=== PATIENT | female | born 2005 | race Caucasian/White ===

== ENCOUNTER 2025-05-23 13:01 | Emergency (ER) | payer MEDICAID ==
[~2025-05-23] VITALS: Ht 154.9 cm; Wt 40.5 kg
[2025-05-23 13:04] VITALS: TEMP 98.6
--- NOTE | 2025-05-23 13:17 | Physician Documentation ---
History of Present Illness ~ Chief Complaint: Abdominal Pain Stated Complaint: ABDOMINAL PAIN Time Seen by MD: 15:23 OK to notify your PCP?: Yes Source: patient Mode of Arrival: POV Exam Limitations: no limitations HPI 20-year-old female presents with lower abdominal pain which is radiating to her right flank for the past 2 days. She reports also having some vaginal bleeding over the past 2 days in his passing some clots. She did have a baby in August of this year. She is unsure when her last menstrual cycle was. Medication Reconciliation Allergies: Coded Allergies: No Known Allergies (Unverified , 05/23/25) Past Medical History Past Medical History: No Pertinent History Past Surgical History: no surgical history Lives with: Mother, Family Lives In: Home Occupation: child Review of Systems All Other Systems at this time: Reviewed and Negative Physical Exam Vital Signs: RN Vital Signs have been reviewed: Yes, Temperature: 98.6, Source: Oral, Heart Rate: 110, Respiratory Rate: 16, Pulse Oximetry: 98, Weight: 40.500 Oxygen Flow Rate: 0 Pulse Oximetry Reflects: adequate oxygenation Physical Exam General: Alert, no apparent distress. HEENT: PERRL, EOMI, no injection, moist mucous membranes. Neck: Full range of motion. Respiratory: Lungs clear, no respiratory distress. Chest: No accessory muscle use. Cardiovascular: Regular rate and rhythm, no murmurs. Gastrointestinal: Soft, nondistended. Bowels sounds present. Right lower quadrant tenderness to palpation. Rebound tenderness, no guarding. Extremities: Normal range of motion, no deformity. Neurologic: Oriented x4. Psychiatric: Normal mood and affect. Skin: Normal color, warm and dry. No edema, no ecchymosis. Pelvic exam declined by patient. Progress Results/Orders Reviewed/noted all lab results: Yes Results/Orders Orders - MICA MARTINEZ Ultrasound Pelvis W/Orwo Dplx (05/23/25 ) Saline Lock (05/23/25 ) Ct Abdomen Pelvis (05/23/25 16:05) Completed Orders - MICA MARTINEZ Ultrasound Pelvis W/Orwo Dplx (05/23/25 ) Procalcitonin (05/23/25 15:30) Normal Saline 1000ml (0.9% Sodium Chlori (05/23/25 15:30) Ct Abdomen Pelvis (05/23/25 16:05) Iohexol 300mg/Ml 100ml Inj. (Omnipaque-3 (05/23/25 17:04) Medications Received in ER Medications (Trade) Dose Ordered Sig/Hever Route PRN Reason Start Time Stop Time Status Last Admin Dose Admin (0.9% sodium chloride (NS) 1000ml IV soln) 1,000 ml ONCE ONCE IVB 05/23/25 15:30 05/23/25 15:33 DC 05/23/25 16:05 1,000 ML Vital Signs 05/23/25 05/23/25 05/23/25 05/23/25 13:04 15:17 16:16 17:49 Temp 98.6 Pulse 110 65 91 Resp 16 15 15 16 B/P (MAP) 94/57 123/56 (78) 100/64 (76) Pulse Ox 98 100 100 O2 Flow Rate 0 05/23/25 17:49 Pulse 90 Resp 16 B/P (MAP) 96/68 (77) Pulse Ox 99 Laboratory Tests Test 05/23/25 13:20 05/23/25 15:26 White Blood Count 11.9 H Red Blood Count 3.95 L Hemoglobin 9.7 L Hematocrit 30.4 L Mean Corpuscular Volume 77.0 L Mean Corpuscular Hemoglobin 24.5 L Mean Corpuscular Hemoglobin Concent 31.9 L Red Cell Distribution Width 15.1 H Platelet Count 453 H Mean Platelet Volume 7.4 Neutrophils (%) (Auto) 74.7 Lymphocytes (%) (Auto) 17.8 L Monocytes (%) (Auto) 6.6 Eosinophils (%) (Auto) 0.4 Basophils (%) (Auto) 0.5 Neutrophils # (Auto) 8.9 H Lymphocytes # (Auto) 2.1 Monocytes # (Auto) 0.8 Eosinophils # (Auto) 0.0 Basophils # (Auto) 0.1 CBC Comment Sodium Level 138 Potassium Level 3.8 Chloride Level 104 Carbon Dioxide Level 27.9 Anion Gap 6 L Blood Urea Nitrogen 12 Creatinine 0.67 Estimated GFR/1.73 m2 > 90 BUN/Creatinine Ratio 17.9 Glucose Level 90 Calcium Level 8.5 Total Bilirubin 0.2 Aspartate Amino Transf (AST/SGOT) 15 Alanine Aminotransferase (ALT/SGPT) 17 Alkaline Phosphatase 82 Total Protein 7.9 Albumin 3.7 Globulin 4.2 Albumin/Globulin Ratio 0.9 L Lipase 20 Procalcitonin < 0.05 Chemistry Comments Urine Specimen Description Urinal Urine Color Yellow Urine Clarity Clear Urine pH 7.0 Urine Specific [place] 1.020 Urine Protein Negative Urine Glucose (UA) Negative Urine Ketones Trace H Urine Occult Blood Negative Urine Nitrite Negative Urine Bilirubin Negative Urine Urobilinogen 0.2 Urine Leukocyte Esterase Negative Urine Culture Indicated Not ind Volume Urine Centrifuged 10 ml Urine HCG, Qualitative Negative Urine Comment EKG/XRAY/CT/US/VASC/MRI CT : Impression Abdominal pelvis CT with contrast as interpreted by me shows: Appendix is not visualized. No free air. a possible 2.2 cm right ovarian cyst. Ultrasound : Impression Pelvic ultrasound as interpreted by me shows: Small amount of free pelvic fluid, small right ovarian follicle, no products of conception. Medical Decision Making Additional information obtaine: old records, family Findings This patient experience vaginal bleeding and right lower quadrant pain correlates with physical exam. She declined the pelvic exam. There is no rebound tenderness or guarding. She reports that the pain radiates into her back. She had a baby in August of the [place] an mentions she has had a couple of menstrual cycles since and they have been normal. She is concerned about the clots that she is passing more than the pain that she is experiencing. Her CBC shows some leukocytosis as well as some likely iron deficiency anemia. The leukocytosis could be a sign of early appendicitis. I discussed this with the patient and she reports that she has a history of iron deficiency anemia and was on iron supplements during her prescribed by her Obgyn but has not seen a doctor after giving and has not been taking any iron supplements since. The pelvic ultrasound showed some free fluid in her pelvis and a right ovarian follicle less than 2cm. To further investigate this I did in CT abdomen pelvis which showed a possible 2.2 cm right ovarian cyst as well as a 4 mm renal pole calculus. The Appendix is not visualized with the cecum terminating within the pelvis adjacent to multiple fluid-filled bowel loops. Without visualization of the appendix, can not exclude acute appendicitis. Multiple fluid-filled nondistended bowel loops are noted although she is not having any diarrhea or constipation. Heterogeneous appearance of the uterus. Her test was negative so this can help to rule out an ectopic or spontaneous . I discussed this case with Dr. Singer about further steps to take for the vaginal bleeding and during this time the patient eloped from the department. I sent a prescription for oral TXA to her pharmacy on file and attempted to call patient but her phone number was not working. Full discharge strict instructions were not given to the patient due to her elopement. Urinary Diff Dx:Considerations: Include: AAA, , Appendicitis, Bowel obstruction, Ovarian torsion, Pyelonephritis, Urinary Obstruction Genital Diff Dx:Considerations: Include: -Complete, - Incomplete, Blood loss anemia, Cervicitis, Ectopic , Intrauterine , Menorrhagia, Menstrual bleeding, PID, , UTI Additional Comment Ovarian cyst, fibroids, polyps, Departure Disposition: 07 LEFT AWOL/ELOPED Impression: Primary Impression: Eloped from emergency department Additional Impression: Ovarian cyst Referrals: NO PRIMARY CARE PROVIDER (PCP) Prescriptions Tranexamic Acid (Tranexamic Acid) 650 Mg Tablet 2 TAB PO Q8H for vaginal bleeding for 5 Days, #30 TAB 0 Refills Prov: MICA MARTINEZ 05/23/25 Education Additional Comment Provided education on condition throughout treatment. Additional Comment Medical Screen Exam This patient recieved a medical screening examination. After reviewing the individual's medical complaints with presenting symptoms and performing an appropriate physical examination, it was determined that no immediate life- threatening emergency medical condition is present. This individual is also not a women having contractions. Signature Scribe Signature: . Attestation: Scribed for Mica Martinez by Mica Sotelo NP . 05/23/25 19:15 Parts of this note were created using [employer] voice recognition software program. While efforts were made to correct any mistakes made by this voice recognition software program, nonsensical phrases may remain in this note. In addition, there may be errors and syntax, grammar, content and spelling. MICA MARTINEZ May 23, 2025 13:17
[2025-05-23 13:36] LABS: MEAN PLATELET VOLUME 7.4 FL (7.4-10.4); RED CELL DISTRIBUTION WIDTH 15.1 % (11.5-14.5)
[2025-05-23 13:43] LABS: CREATININE 0.67 MG/DL (0.40-0.90); TOTAL CARBON DIOXIDE 27.9 MMOL/L (24-32); eCRCL 86 ML/MIN; eGFR > 90 ML/MIN
[2025-05-23 15:37] LABS: LEUKOCYTE ESTERASE ,URINE NEGATIVE (Neg); NITRITES, URINE NEGATIVE (Neg); OCCULT BLOOD,URINE NEGATIVE (Neg)
[2025-05-23 15:39] LABS: URINE HCG NEGATIVE (NEG)
[2025-05-23 15:41] LABS: UA COLLECTION TYPE URINAL
[2025-05-23] MEDS: normal saline 1000ML IV soln IVB ONE (16:05)
--- NOTE | 2025-05-23 16:20 | RADIOLOGY REPORT ---
Technique: Real-time ultrasound images through the pelvis using a transabdominal transducer. Indication: vaginal bleed, back pain, abdominal pain x 3 days Comparison: None Findings: The uterus measures 7.3 cm. The endometrial stripe measures 5 mm. There are no focal masses. There is no abnormal flow in the endometrium. Right ovary measures 4.5 x 3.8 x 3 cm. Normal flow on color doppler images. Right ovarian follicle / cyst measuring 1.3 cm. Left ovary measures 3.6 x 2.3 x 2.7 cm. Normal flow on color doppler images. No focal masses are identified. Small amount of free pelvic fluid. Impression: Small amount of free pelvic fluid which may be physiologic. Endometrial thickness of 5 mm, within normal limits.
[2025-05-23] MEDS ORDERED: iohexol 300mg/ml 100ml inj. ONE (17:04)
[2025-05-23 17:49] VITALS: BP 96/68; PULSE 90; RESP 16; O2SAT 99
--- NOTE | 2025-05-23 18:12 | RADIOLOGY REPORT ---
Exam: CT CT ABDOMEN PELVIS W/ IV CONTRAST History: free fluid in abdomen seen in US. elevated WBC, vag bleed, abd pain Comparison Study: Pelvic ultrasound 05/23/2025 TECHNIQUE: Multidetector CT of the abdomen pelvis with IV contrast. Axial, coronal and sagittal multiplanar reformats were obtained from the axial data set by the technologist. Radiation Dose Information: CT Dose: CTDI volume is 0.99 mGy. Dose-length product is 173.9 mGy*cm FINDINGS: The lung bases are clear. Partially visualized heart is unremarkable. Mild splenomegaly. Otherwise, liver, spleen, gallbladder, pancreas and adrenal glands are unremarkable. 4 mm right renal lower pole calculus. Otherwise, kidneys, ureters and urinary bladder are unremarkable. Heterogeneous appearance of the uterus. Small amount of free fluid within the cul-de-sac which is most likely physiologic. A tampon is noted in place. Limited Evaluation of bilateral adnexa. Stomach is unremarkable. Proximal and distal small bowel loops are fluid-filled and nondistended. Appendix is not definitely visualized with the cecum terminating within the pelvis and multiple fluid-filled bowel loops adjacent to the cecum. Large amount of fecal material within the ascending colon with moderate amount of gas within the transverse colon. Small amount of fecal material within the remainder of the colon. No evidence of intraperitoneal free air. No evidence of aortic aneurysm or dissection. No Significant lymphadenopathy. Minimal body wall edema. No evidence of acute osseous abnormalities. IMPRESSION: Appendix is not visualized with the cecum terminating within the pelvis adjacent to multiple fluid-filled bowel loops. Without visualization of the appendix, can not exclude acute appendicitis. Multiple fluid-filled nondistended bowel loops are noted. Correlate for enteritis. Limited evaluation of bilateral adnexa with a possible 2.2 cm right ovarian cyst. Heterogeneous appearance of the uterus. Additional findings as above.
[2025-05-23] MEDS ORDERED: TRAN650T5 PO (19:06)
== END 2025-05-23 18:51 | disposition left against medical advice (07) ==
LOC: ER 13:02
DX: N83.201 Unspecified ovarian cyst, right side (principal)
CPT/HCPCS: 36415; 74177; 76856; 80053; 81003; 81025; 83690; 84145; 85025; 93976; 96360; 99285; J7030; Q9967